=== PATIENT | male | born 1965 | race Caucasian/White ===

== ENCOUNTER → 2017-01-27 | Outpatient (CLI) | payer OTHER ==
[~2017-01-27] MED LIST: MOBI7.5T PO
[2017-01-27 09:34] LABS: HEMATOCRIT 43.5 % (39.0-51.0); MEAN CELL VOLUME 89.7 FL (80.0-100.0); MEAN CORPUSCULAR HEMOGLOBIN 31.3 PG (27.0-34.0); MEAN CORPUSCULAR HGB CONC 34.9 % (32.0-36.0); PLATELET COUNT 213 TH/MM3 (150-450); RED BLOOD COUNT 4.86 MIL/MM3 (4.50-5.90); RED CELL DISTRIBUTION WIDTH 13.3 % (11.6-17.2); REVIEW FLAG FINAL; WHITE BLOOD COUNT 6.4 TH/MM3 (4.0-11.0)
[2017-01-27 09:38] LABS: BLOOD, URINE NEG (NEG); GLUCOSE,URINE NEG (NEG); KETONE, URINE NEG (NEG); NITRITE,URINE NEG (NEG); URINE COLOR LIGHT-YELLOW (YELLW/STRAW)
[2017-01-27 09:41] LABS: APTT (PATIENT) 27.3 SEC (24.3-30.1)
[2017-01-27 09:42] LABS: COMMENT (UR) CULT NOT INDICATED; CULTURE IF INDICATED CULT NOT INDICATED
[2017-01-27 09:57] LABS: BICARBONATE 28.5 MEQ/L (21.0-32.0); POTASSIUM 4.5 MEQ/L (3.5-5.1)
--- NOTE | 2017-01-28 14:23 | EKG ---
Date Performed: 01/27/2017 Time Performed: 08:32:29 PTAGE: 51 years EKG: Sinus rhythm NORMAL ECG NO PREVIOUS TRACING DOCTOR: Zuleika Ingram Interpretating Date/Time 01/28/2017 14:22:00
== END ==
LOC: CPRE 08:13
PROVIDERS: ATTEND Orthopaedic Surgery
DX: Z01.812 Encounter for preprocedural laboratory examination (principal); Z01.810 Encounter for preprocedural cardiovascular examination; M17.12 Unilateral primary osteoarthritis, left knee; M79.609 Pain in unspecified limb; I10 Essential (primary) hypertension
CPT/HCPCS: 36415; 80048; 81001; 85027; 85610; 85730; 93005

== ENCOUNTER 2017-02-10 05:26 | Inpatient (IN) | payer OTHER ==
[~2017-02-10] VITALS: Ht 174 cm; Wt 157.8 kg
[2017-02-10] MEDS ORDERED: TRAM50TA PO (05:53)
[2017-02-10] MEDS ORDERED: SODIUM CHLORID 0.9% 500 ML IV PRN (06:00)
[2017-02-10] MEDS ORDERED: ceFAZolin 3,000 MG/NS 100 ML (if >120 kg) IV SCH ×2 (06:00)
[2017-02-10] MEDS ORDERED: CHLORHEXIDINE GLUCONATE 4% SOLN 120 ML BTL TOPICAL SCH (06:00)
[2017-02-10] MEDS ORDERED: METOPROLOL TARTRATE 25 MG TAB PO PRN (06:00)
[2017-02-10] MEDS ORDERED: LACTATED RINGER'S 1000 ML IV PRN (06:00)
[2017-02-10] MEDS ORDERED: POVIDONE IODINE 5% (ANTISEPSIS KIT) 4 APPLICATIONS EACH NARE PRN (06:00)
[2017-02-10] MEDS ORDERED: CHLORHEXIDINE GLUCONATE 2 % 1 PACK (2 CLOTHS) TOPICAL PRN (06:00)
[2017-02-10] MEDS ORDERED: GENTAMICIN SULFATE 80 MG/2 ML VIAL ONE (06:06)
[2017-02-10] MEDS ORDERED: ceFAZolin 2 GM PREMIX 50 ML ONE (06:06)
[2017-02-10] MEDS ORDERED: ceFAZolin INJ 1,000 MG VIAL ONE (06:35)
[2017-02-10] MEDS ORDERED: BUPIVACAINE LIPOSOME PF 1.3% 20 ML VIAL ONE (06:49)
[2017-02-10] MEDS ORDERED: SODIUM CHLORIDE 0.9% IV SCH ×3 (07:00→10:00)
[2017-02-10] MEDS ORDERED: EXPAREL PERI-ARTICULAR INJECTION (TOTAL VOL. 100 ML) P-ARTICULR SCH ×2 (07:00)
[2017-02-10] MEDS ORDERED: TRANEXAMIC ACID IV SCH ×3 (07:00→10:00)
[2017-02-10] MEDS ORDERED: MORPHINE SULFATE 4 MG/ML INJ IV PUSH PRN (09:45)
[2017-02-10] MEDS ORDERED: ONDANSETRON HCL 4 MG/2 ML VIAL IVP PRN (09:45)
[2017-02-10] MEDS ORDERED: Post-op Orders (for Pharmacy) XX ONE (09:45)
[2017-02-10] MEDS ORDERED: ACETAMINOPHEN/HYDROcodone 325 MG/7.5 MG TAB PO PRN (09:45)
[2017-02-10] MEDS ORDERED: ZOLPIDEM TARTRATE 5 MG TAB PO PRN (09:45)
[2017-02-10] MEDS ORDERED: MAGNESIUM HYDROXIDE SUSP 30 ML CUP PO PRN (09:45)
--- NOTE | 2017-02-10 09:56 | PD.OP ---
Operative Report Date of Surgery: Feb 10, 2017 Preoperative Diagnosis: (1) Primary osteoarthritis of left knee Postoperative Diagnosis: (1) Primary osteoarthritis of left knee Procedure: Left total knee arthroplasty with [place] Triathlon prosthesis (uncemented) Anesthesia: General endotracheal with supplemental abductor canal block regional and local Surgeon: Aden Frias M.D. Reproduction Production Manager(s): VANESSA Bhatia Operation and Findings: Indications and Findings: This 51-year-old man has a two-year history of left knee pain progressively worsening to the point that he now has an ambulation tolerance of 30 minutes. He has difficulty standing from a seated position and ascending and descending stairs with intermittent locking, intermittent giving way and crepitation. He has been treated with anti-inflammatory agents and analgesics and activity modification and exercises intra-articular corticosteroids and ambulatory aids without benefit of improvement. Imaging studies show significant arthritis of the left knee with loss of articular cartilage to bone on bone on the medial compartment with osteophytes in the medial and patellofemoral compartments and eburnation. Findings at surgery were compatible with the radiographic findings with there being loss of articular cartilage to bone on bone medial compartment, medial and patellofemoral osteophytes, loss of articular cartilage in the patellofemoral compartment. The prosthesis used was a [place] Triathlon prosthesis. The femur was a size 5, cruciate retaining, uncemented. The tibial baseplate was a size 5 Tritanium with a 9 mm cruciate retaining X3 polyethylene spacer. The patella was a size 38 mm asymmetric Tritanium backed. The patient was brought to the clean-air operating suite. A general anesthetic was administered as well as a regional anesthetic by abductor canal block. The position was supine with a small bolster under the hip on the operative side. A pneumatic tourniquet was applied to the upper thigh. The lower extremity was then prepped with alcohol, Hibiclens and ChloraPrep and draped in the usual manner with the knee draped free. An appropriate timeout procedure was carried out. An incision was made from about 3 fingerbreadths above the superior medial pole of patella down the tibial tubercle on the medial side. The incision was deepened through the subcutaneous tissue to the right macular structures which were exposed medially and laterally. A medial retinacular incision was then made from the superior middle pole of patella down the tibial tubercle and up into the quadriceps tendon splitting it longitudinally and the medial one third. The patella was reflected. The infrapatellar fat pad was debulked. The anterior cruciate ligament was excised. Medial and lateral meniscectomies were initiated. Fenestrations were made in the distal femur and proximal tibia for intramedullary referencing guides. The distal femoral cutting guide and jig were then assembled for a 5, 8 mm cut. When this was fit position and placed cutting block was stabilized with pins. The jig was removed. The distal femoral cut was then completed with the oscillating saw. The sizing guide was then positioned in place along Whitesides line and the epicondylar axis and stabilized with pins. The femoral size was then determined as noted above. The 4-in-1 cutting block was then positioned in place. Anterior and posterior cuts were made followed by posterior and anterior chamfer cuts taking care to prevent injury to ligamentous structures. Osteophytes were then trimmed from the distal femur. A bone plug was then placed into the fenestration of the distal femur. The proximal tibia was then exposed. The medial and lateral meniscectomies were completed. The proximal tibial cutting guide was then positioned in place and stabilized with a pin for rotation. The depth of cut was then verified with a stylus off the lateral side. The cutting block was stabilized with pins. The jig was removed. The depth of cut was then verified and adjusted appropriately with the use of the spacer block. The proximal tibial cut was then made with the oscillating saw taking care to prevent injury to neurovascular and ligamentous structures. Proximal tibial bone was removed. Local anesthetic was administered with Exparel in the posterior capsule. The tibial baseplate trial was then positioned in place. After verifying the appropriate size, the base plate trial was positioned in place along with its spacer. The femoral component was then impacted into place. The alignment was checked. The tibial baseplate was then pinned in place on the tibia. Attention was directed to the patella. The patella drill guide was positioned in place for the appropriate sized patella. Patellar drilling was then carried out. The trial patella was positioned in place. The lateral facet of the patella that was exposed was excised. The knee was taken through a range of motion which was easily 0 extension to 120. The patella trial was removed. The femoral drill holes were made. The femoral trials were removed. The tibial spacer was removed. A bone plug was placed into the proximal tibia. The tibial punch was impacted through the proximal tibial punch guide. This was all removed followed by placement of the tibial drill guide. The tibial drill holes were then made. The guide was removed. The cut ends of bone were then cleaned with pulse lavage. The tibial baseplate was then impacted into place and seated appropriately. The spacer was inserted. The the femoral component was then impacted into place and seated appropriately. The patella component was then seated with the patellar device and tightened appropriately. The knee was taken through a range of motion which was comparable to the previous range of motion with excellent stability in flexion and extension and appropriate patellofemoral tracking. The remainder of the Exparel was then injected throughout the knee as a local anesthetic. Drains were brought out the superior lateral aspect of the suprapatellar pouch. Wound closure then commenced using 0 Vicryl interrupted [id number] sutures for the capsular and fascial structures, 2-0 Vicryl interrupted simple sutures with buried knots for the subcutaneous tissues and 4- 0 Monocryl, tenuous subcuticular closure for the skin. The wound was then dressed with Steri-Strips followed by Optifoam silver impregnated dressing. Sterile soft roll with a cooling pad and Greyson bandage from the base of the toes to mid thigh were then applied. Patient was then transferred from the operating room to the recovery room in satisfactory condition having tolerated procedure well. Counts are correct. Specimens: None. José Frias MD ([facility]) Feb 10, 2017 09:56
--- NOTE | 2017-02-10 10:05 | HHI.FF ---
Face to Face Verification Diagnosis: (1) Status post total left knee replacement Physical Therapy Gait training Knee: Total knee, Protocol: Left, Gait training, Full weight bearing Right LE Range of Motion: Active ROM (active, active-assisted and passive range of motion. Range of motion goal is 0-120 which was achieved in the operating room.) Left LE Weight Bearing: WB as tolerated Nursing Nursing: Dressing changes Dressing Changes: Daily dressing change (to begin on postop day 7.), Coverderm/ Primapore Additional Instructions Remove Steri-Strips on postop day 14. I have seen patient Reddy Tafoya on 02/10/17. My clinical findings support the need for the requested home health care services because: Ltd mobility - disease progression Limited ability to care for self High risk of falls I certify that my clinical findings support that this patient is homebound because: Post-op weakness Unsteady gait/balance Unsafe to leave home unassisted José Frias MD ([facility]) Feb 10, 2017 10:05
--- NOTE | 2017-02-10 10:09 | HHI.PR ---
Immediate Post Op Note Procedure Date: Feb 10, 2017 Pre Op Diagnosis: (1) Primary osteoarthritis of left knee Post Op Diagnosis: (1) Status post total left knee replacement Surgeon: Aden Frias M.D. Charge Loader(s): VANESSA Bhatia Procedure: Left total knee arthroplasty with Khalif Triathlon prosthesis, uncemented. Findings: Osteoarthritis, left knee. Complications: None Specimen(s) removed: None Estimated blood loss: 750 mL Anesthesia: General, Regional Block (abductor canal), Local (Exparel) Drains: Hemovac (2) IVF Patient to: PACU Patient Condition: Good Implant/Devices: SEE IMPLANT LOG (if applicable) Date/Time of Procedure: SEE SURGICAL CARE RECORD José Frias MD (Charles) Feb 10, 2017 10:09
[2017-02-10] MEDS ORDERED: *morphine SULFATE 8 MG/ML PERIprocedure ONLY ONE ×2 (10:18→10:26)
[2017-02-10] MEDS ORDERED: *HYDROmorphone PF 1 MG VIAL PERIprocedural Use ONLY ONE ×3 (10:33→11:13)
[2017-02-10] MEDS: LACTATED RINGER'S 1000 ML INJ 1,000 ML IV SCH ×2 (10:35→22:14)
--- NOTE | 2017-02-10 10:56 | RADRPT ---
EXAM DATE/TIME: 02/10/2017 10:29 [facility] COMPARISON: No previous studies available for comparison. INDICATIONS : Post op left total knee. MEDICAL HISTORY : None. SURGICAL HISTORY : None. ENCOUNTER: Initial ACUITY: 1 day PAIN SCORE: 10/10 LOCATION: Left Knee FINDINGS: Postsurgical features of left knee arthroplasty. Arthroplasty components are in anatomic alignment. N o significant acute bony fracture. Immediate postsurgical soft tissue features. CONCLUSION: 1. Status post left knee arthroplasty in anatomic alignment without significant acute bony fracture. Luke Grimaldo MD on February 10, 2017 at 10:41 Board Certified Radiologist. This report was verified electronically.
[2017-02-10] MEDS ORDERED: DO NOT ADM ANY ANTICOAGULANT DRUGS PRN ×2 (11:00)
[2017-02-10] MEDS: KETOROLAC TROMETHAMINE 30 MG/ML (IVP) VIAL IVP SCH ×3 (11:20→22:43)
[2017-02-10 12:00] VITALS: BP 109/58; PULSE 68; RESP 20; TEMP 97.3; O2SAT 91
[2017-02-10] MEDS: ACETAMINOPHEN/HYDROcodone 325 MG/7.5 MG TAB PO PRN ×3 (14:22→22:43)
[2017-02-10] MEDS ORDERED: cloNIDine HCL 0.1 MG TAB PO PRN (15:15)
--- NOTE | 2017-02-10 15:15 | PD.CONS ---
HPI Service [facility] Consult Requested By Dr. Aden Frias Reason for Consult Medical management Primary Care Physician Mike Montaño MD Diagnoses: History of Present Illness Patient is a 51-year-old gentleman. With history of obstructive sleep apnea and obesity as well as osteoarthritis who presents for a left total knee arthroplasty performed by Dr. Frias. We've been asked to consult regarding medical management. Patient denies any other medical problems at this time other than obstructive sleep apnea and osteoarthritis We will be available for any other issues that arise Review of Systems Constitutional: DENIES: Diaphoretic episodes, Fatigue, Fever, Weight gain, Weight loss, Chills, Dizziness, Change in appetite, Night Sweats Endocrine: DENIES: Heat/cold intolerance, Polydipsia, Polyuria, Polyphagia Eyes: DENIES: Blurred vision, Diplopia, Eye inflammation, Eye pain, Vision loss , Photosensitivity, Double Vision Ears, nose, mouth, throat: DENIES: Tinnitus, Hearing loss, Vertigo, Nasal discharge, Oral lesions, Throat pain, Hoarseness Respiratory: DENIES: Apneas, Cough, Snoring, Wheezing, Hemoptysis, Sputum production Cardiovascular: DENIES: Chest pain, Palpitations, Syncope, Dyspnea on Exertion , PND Gastrointestinal: DENIES: Abdominal pain, Black stools, Bloody stools, Constipation, Diarrhea Musculoskeletal: DENIES: Joint pain, Muscle aches, Stiffness, Joint Swelling, Back pain Integumentary: DENIES: Abnormal pigmentation, Nail changes, Pruritus Hematologic/lymphatic: DENIES: Bruising, Lymphadenopathy Immunologic/allergic: DENIES: Eczema, Urticaria Neurologic: COMPLAINS OF: Abnormal gait, DENIES: Headache, Localized weakness, Paresthesias, Seizures, Speech Problems Psychiatric: DENIES: Anxiety, Confusion, Mood changes, Depression, Hallucinations, Agitation, Suicidal Ideation Except as stated in HPI: all other systems reviewed are Neg Past Family Social History Allergies: Coded Allergies: No Known Allergies (Unverified , 02/10/17) Past Medical History Objective sleep apnea Osteoarthritis Obesity Chronic back pain Past Surgical History 2 lumbar surgeries Reported Medications Reported Meds & Active Scripts Active Reported Tramadol (Tramadol HCl) 50 Mg Tab 50 Mg PO Q4H PRN Mobic (Meloxicam) 7.5 Mg Tab 7.5 Mg PO BID Active Ordered Medications Current Medications Lactated Ringer's 1,000 ml @ 30 mls/hr Q24H PRN IV SEE LABEL COMMENTS Last administered on 02/10/17 06:03; Start 02/10/17 at 06:00; Stop 02/13/17 at 05 :59 Sodium Chloride 500 ml @ 30 mls/hr [id number] PRN IV SEE LABEL COMMENTS; Start at 06:00; Stop 02/13/17 at 05:59 Metoprolol Tartrate (Lopressor) 25 mg CIRCULAR KNITTER HELPER PRN PO SEE LABEL COMMENTS; Start 02/10/17 at 06:00; Stop 02/13/17 at 05:59 Povidone Iodine (Betadine 5% Antisepsis Kit) 1 applic CIRCULAR KNITTER HELPER PRN EACH NARE SEE LABEL COMMENTS Last administered on 02/10/17 06:03; Start 02/10/17 at 06: 00; Stop 02/13/17 at 05:59 Chlorhexidine Gluconate (Chlorhexidine 2% Cloth) 3 pack CIRCULAR KNITTER HELPER PRN TOPICAL SEE LABEL COMMENTS Last administered on 02/09/17 05:40; Start 02/10/17 at 06: 00; Stop 02/13/17 at 05:59 Chlorhexidine Gluconate (Hibiclens 4% Top Soln) 1 applic ONCE TOPICAL Last administered on 02/10/17 06:03; Start 02/10/17 at 06:00; Stop 02/13/17 at 05 :59 Cefazolin Sodium 3000 mg/Sodium Chloride 130 ml @ 200 mls/hr CIRCULAR KNITTER HELPER IV ; Start 02/10/17 at 06:00; Stop 02/11/17 at 05:59 Tranexamic Acid 1578 mg/Sodium Chloride 115.78 ml @ 200 mls/ hr ONCE IV Last administered on 02/10/17 07:01; Start 02/10/17 at 07:00; Stop 02/10/17 at 13 :00; Status DC Tranexamic Acid 1578 mg/Sodium Chloride 115.78 ml @ 200 mls/ hr ONCE IV ; Start 02/10/17 at 10:00; Stop 02/10/17 at 16:00 Bupivacaine Liposome 20 ml/ Sodium Chloride 100 ml @ 200 mls/hr ONCE P- ARTICULR ; Start 02/10/17 at 07:00; Stop 02/10/17 at 13:00; Status DC Cefazolin Sodium/ Dextrose 50 ml @ As Directed STK-MED ONCE .ROUTE Last administered on 02/10/17 07:16; Start 02/10/17 at 06:06; Stop 02/10/17 at 06 :07; Status DC Gentamicin Sulfate (Gentamicin Inj) 240 mg STK-MED ONCE .ROUTE Last administered on 02/10/17 07:30; Start 02/10/17 at 06:06; Stop 02/10/17 at 06 :07; Status DC Cefazolin Sodium (Ancef Inj) 1,000 mg STK-MED ONCE .ROUTE Last administered on 02/10/17 07:16; Start 02/10/17 at 06:35; Stop 02/10/17 at 06:36; Status DC Bupivacaine Liposome (Exparel Pf 1.3% Inj) 20 ml STK-MED ONCE .ROUTE ; Start at 06:49; Stop 02/10/17 at 06:50; Status DC Fentanyl Citrate (fentaNYL INJ) 500 mcg STK-MED ONCE .ROUTE ; Start 02/10/17 at 08:15; Stop 02/10/17 at 08:16; Status DC Lactated Ringer's 1,000 ml @ 80 mls/hr [id number] IV Last administered on 10:35; Start 02/10/17 at 09:44 Cefazolin Sodium 1000 mg/Sodium Chloride 100 ml @ 200 mls/hr Q6H IV ; Start at 16:00; Stop 02/11/17 at 04:29 Miscellaneous Information (Post-op Orders (for Pharmacy)) STAT ONCE XX ; Start 02/10/17 at 09:45; Stop 02/10/17 at 11:02; Status DC Morphine Sulfate (Morphine Inj) 4 mg Q3H PRN IV PUSH BREAKTHROUGH PAIN; Start 02/10/17 at 09:45 Acetaminophen/ Hydrocodone Bitart ([place] 7.5-325 Mg) 1 tab Q4H PRN PO PAIN LESS THAN 5 ON SCALE; Start 02/10/17 at 09:45 Acetaminophen/ Hydrocodone Bitart ([place] 7.5-325 Mg) 2 tab Q4H PRN PO PAIN SCALE 5 TO 10 Last administered on 02/10/17 14:22; Start 02/10/17 at 09:45 Ketorolac Tromethamine (Toradol Inj) 15 mg Q6H IVP Last administered on 11:20; Start 02/10/17 at 11:00; Stop 02/12/17 at 05:01 Tranexamic Acid 1580 mg/Sodium Chloride 115.8 ml @ 200 mls/hr UNSCH IV Last administered on 02/10/17 10:22; Start 02/10/17 at 09:45; Stop 02/10/17 at 11 :02; Status DC Ondansetron HCl (Zofran Inj) 4 mg Q6H PRN IVP NAUSEA OR VOMITING; Start at 09:45 Docusate Sodium (Colace) 100 mg BID PO ; Start 02/11/17 at 21:00 Zolpidem Tartrate (Ambien) 5 mg HS PRN PO SLEEP; Start 02/10/17 at 09:45 Magnesium Hydroxide (Milk Of Magnesia Liq) 30 ml DAILY PRN PO CONSTIPATION; Start 02/10/17 at 09:45 Aspirin (Ecotrin Ec) 81 mg BID PO ; Start 02/11/17 at 09:00 Morphine Sulfate (*morphine INJ PERIprocedure ONLY) 8 mg STK-MED ONCE .ROUTE Last administered on 02/10/17 10:20; Start 02/10/17 at 10:18; Stop 02/10/17 at 10:19; Status DC Morphine Sulfate (*morphine INJ PERIprocedure ONLY) 8 mg STK-MED ONCE .ROUTE Last administered on 02/10/17 10:28; Start 02/10/17 at 10:26; Stop 02/10/17 at 10:27; Status DC Hydromorphone HCl (*DILAUDID PF INJ PERIprocedural ONLY) 1 mg STK-MED ONCE .ROUTE Last administered on 02/10/17 10:34; Start 02/10/17 at 10:33; Stop 02/10/17 at 10:34; Status DC Miscellaneous Information ALL NURSING DEPARTME... UNSCH PRN .XX SEE LABEL COMMENTS; Start 02/10/17 at 11:00; Stop 02/10/17 at 11:00; Status DC Miscellaneous Information ALL NURSING DEPARTME... UNSCH PRN .XX SEE LABEL COMMENTS; Start 02/10/17 at 11:00; Stop 02/11/17 at 10:59 Hydromorphone HCl (*DILAUDID PF INJ PERIprocedural ONLY) 1 mg STK-MED ONCE .ROUTE Last administered on 02/10/17t 10:57; Start 02/10/17 at 10:56; Stop 02/10/17 at 10:57; Status DC Hydromorphone HCl (*DILAUDID PF INJ PERIprocedural ONLY) 1 mg STK-MED ONCE .ROUTE Last administered on 02/10/17 11:15; Start 02/10/17 at 11:13; Stop 02/10/17 at 11:14; Status DC Family History Mother from lung cancer Social History Former smoker quit Occasional alcohol denies any illicits Physical Exam Vital Signs Vital Signs Date Time Temp Pulse Resp B/P (MAP) Pulse Ox O2 Delivery O2 Flow Rate FiO2 02/10/17 12:56 16 02/10/17 12:00 97.3 68 20 109/58 (75) 91 02/10/17 11:15 98.5 68 12 150/79 (102) 96 Nasal Cannula 3 02/10/17 11:00 69 10 136/67 (90) 93 Nasal Cannula 3 02/10/17 10:45 72 12 140/64 (89) 96 Nasal Cannula 3 02/10/17 10:30 74 15 142/64 (90) 92 Nasal Cannula 3 02/10/17 10:14 98.4 81 14 156/89 (111) 97 Simple Mask 6 02/10/17 06:09 98.2 69 20 121/57 (78) 100 Physical Exam GENERAL: This is a well-nourished, well-developed patient, in no apparent distress. SKIN: No rashes, ecchymoses or lesions. Cool and dry. HEAD: Atraumatic. Normocephalic. No temporal or scalp tenderness. EYES: Pupils equal round and reactive. Extraocular motions intact. No scleral icterus. No injection or drainage. ENT: Nose without bleeding, purulent drainage or septal hematoma. Throat without erythema, tonsillar hypertrophy or exudate. Uvula midline. Airway patent. NECK: Trachea midline. No JVD or lymphadenopathy. Supple, nontender, no meningeal signs. CARDIOVASCULAR: Regular rate and rhythm without murmurs, gallops, or rubs. S1 and S2 no S3 or S4 RESPIRATORY: Clear to auscultation. Breath sounds equal bilaterally. No wheezes , rales, or rhonchi. GASTROINTESTINAL: Abdomen soft, non-tender, nondistended. No hepato-splenomegaly , or palpable masses. No guarding. Morbidly obese MUSCULOSKELETAL: Extremities without clubbing, cyanosis, or edema. No joint tenderness, effusion, or edema noted. No calf tenderness. Negative Homans sign bilaterally. Left knee is dressed left leg is dressed NEUROLOGICAL: Awake and alert. Cranial nerves II through XII intact. Motor and sensory grossly within normal limits. Five out of 5 muscle strength in all muscle groups. Normal speech. Insight and judgment good Mood and behavior appropriate Imaging Last Impressions Knee X-Ray 02/10/17 0944 Signed Impressions: Service Date/Time: Friday, February 10, 2017 10:29 - CONCLUSION: 1. Status post left knee arthroplasty in anatomic alignment without significant acute bony fracture. Luke Grimaldo MD Assessment and Plan Assessment and Plan Status post left total knee arthroplasty by orthopedics postop day #0 Morbid obesity weight loss recommended Obstructive sleep apnea continue on CPAP/BiPAP A.m. labs Discussed with patient RN and Code Status Full code Discussed Condition With Patient, RN and Chang Worrell DO Feb 10, 2017 15:15
[2017-02-10 16:00] VITALS: BP 132/68; PULSE 73; RESP 21; TEMP 95.8; O2SAT 96
[2017-02-10 21:06] VITALS: O2SAT 96
[2017-02-10 21:14] VITALS: BP 101/58; PULSE 86; RESP 17; TEMP 97; O2SAT 96
[2017-02-11 00:02] VITALS: BP 118/60; PULSE 76; RESP 17; TEMP 96.9; O2SAT 96
[2017-02-11] MEDS: KETOROLAC TROMETHAMINE 30 MG/ML (IVP) VIAL IVP SCH ×2 (03:43→10:54)
[2017-02-11] MEDS: ACETAMINOPHEN/HYDROcodone 325 MG/7.5 MG TAB PO PRN ×3 (03:44→12:46)
[2017-02-11 03:59] VITALS: BP 150/73; PULSE 64; RESP 16; TEMP 97; O2SAT 98
--- NOTE | 2017-02-11 06:22 | PD.ORT.PN ---
Subjective Post Op Day #: 1 Subjective Remarks He is doing well. He has minimal complaints related to his knee at this time. He did well with physical therapy. Range of Motion -13-95 Distance Walked 35 feet with PT Objective Vitals Vital Signs Date Time Temp Pulse Resp B/P (MAP) Pulse Ox O2 Delivery O2 Flow Rate FiO2 02/11/17 03:59 97.0 64 16 150/73 (98) 98 02/11/17 00:02 96.9 76 17 118/60 (79) 96 02/10/17 21:14 97.0 86 17 101/58 (72) 96 02/10/17 21:06 96 21 02/10/17 19:09 Room Air 02/10/17 17:56 16 02/10/17 16:00 95.8 73 21 132/68 (89) 96 02/10/17 15:22 16 02/10/17 12:00 97.3 68 20 109/58 (75) 91 02/10/17 11:15 98.5 68 12 150/79 (102) 96 Nasal Cannula 3 02/10/17 11:00 69 10 136/67 (90) 93 Nasal Cannula 3 02/10/17 10:45 72 12 140/64 (89) 96 Nasal Cannula 3 02/10/17 10:30 74 15 142/64 (90) 92 Nasal Cannula 3 02/10/17 10:14 98.4 81 14 156/89 (111) 97 Simple Mask 6 I/O 02/10/17 02/10/17 02/10/17 02/11/17 02/11/17 02/11/17 07:00 15:00 23:00 07:00 15:00 23:00 Intake Total 2020 ml 340 ml 643 ml Output Total 3800 ml 350 ml Balance -1780 ml -10 ml 643 ml Intake Oral 120 ml 240 ml IV Total 1900 ml 100 ml 643 ml Output Urine Total 350 ml Drainage Total 50 ml Estimated Blood Loss 750 ml Other 3000 ml # Bowel Movements 0 Imaging Last 24 hours Impressions Knee X-Ray 02/10/17 0944 Signed Impressions: Service Date/Time: Friday, February 10, 2017 10:29 - CONCLUSION: 1. Status post left knee arthroplasty in anatomic alignment without significant acute bony fracture. Luke Grimaldo MD Objective Remarks He is resting comfortably, supine in bed, in the CPM. The neurovascular status is intact. The dressing is dry and intact. Assessment & Plan Ortho Post Op Day #: 1 Problem List: Assessment and Plan Condition: Good. Orthopedically stable. DVT prophylaxis: TEDs, aspirin, sequentials. Discharge plans: Home with home health care. An appointment was scheduled through the office. Prescriptions: [place] 7.5/325 José Frias MD ([place]) Feb 11, 2017 06:22
[2017-02-11] MEDS ORDERED: HYDR-3580 PO (06:27)
[2017-02-11 08:00] VITALS: BP 121/54; PULSE 75; RESP 20; TEMP 96.4; O2SAT 96
[2017-02-11] MEDS ORDERED: ASPIRIN EC 81 MG TABEC PO SCH (09:00)
[2017-02-11 09:24] VITALS: O2SAT 99
[2017-02-11 09:45] LABS: AUTOMATED NEUTROPHIL # 6.6 TH/MM3 (1.8-7.7); BASOPHIL % 0.5 % (0.0-2.0); EOSINOPHIL % 0.5 % (0.0-4.0); HEMATOCRIT 35.1 % (39.0-51.0); HEMO FLAGS DIFF FINAL; LYMPH % 18.3 % (9.0-44.0); LYMPHOCYTE # 1.6 TH/MM3 (1.0-4.8); MEAN CORPUSCULAR HEMOGLOBIN 31.8 PG (27.0-34.0); MEAN CORPUSCULAR HGB CONC 35.3 % (32.0-36.0); MONO % 6.8 % (0.0-8.0); NEUT % 73.9 % (16.0-70.0); PLATELET COUNT 219 TH/MM3 (150-450); RED CELL DISTRIBUTION WIDTH 13.2 % (11.6-17.2); WHITE BLOOD COUNT 8.9 TH/MM3 (4.0-11.0)
[2017-02-11 10:14] LABS: ALT (GPT) 29 U/L (12-78); ANION GAP 7 MEQ/L (5-15); AST (GOT) 17 U/L (15-37); BICARBONATE 28.3 MEQ/L (21.0-32.0); BLOOD UREA NITROGEN 14 MG/DL (7-18); CHLORIDE 101 MEQ/L (98-107); GLOMERULAR FILTRATION RATE 76 ML/MIN (>89); MAGNESIUM 1.9 MG/DL (1.5-2.5); POTASSIUM 3.7 MEQ/L (3.5-5.1); SODIUM (NA) 136 MEQ/L (136-145)
[2017-02-11 10:23] LABS: ALKALINE PHOSPHATASE 73 U/L (45-117); FREE T4 1.52 NG/DL (0.76-1.46); TOTAL BILIRUBIN ADULT 0.5 MG/DL (0.2-1.0)
[2017-02-11] MEDS: LACTATED RINGER'S 1000 ML INJ 1,000 ML IV SCH (10:44)
--- NOTE | 2017-02-11 11:51 | HHI.PR ---
Subjective Remarks Patient is a 51-year-old gentleman. With history of obstructive sleep apnea and obesity as well as osteoarthritis who presents for a left total knee arthroplasty performed by Dr. Frias. We've been asked to consult regarding medical management. Patient denies any other medical problems at this time other than obstructive sleep apnea and osteoarthritis We will be available for any other issues that arise 02-11 states he is going home today Paper work has been done by orthopedics Objective Vitals Vital Signs Date Time Temp Pulse Resp B/P (MAP) Pulse Ox O2 Delivery O2 Flow Rate FiO2 02/11/17 09:24 99 02/11/17 08:00 96.4 75 20 121/54 (76) 96 02/11/17 03:59 97.0 64 16 150/73 (98) 98 02/11/17 00:02 96.9 76 17 118/60 (79) 96 02/10/17 21:14 97.0 86 17 101/58 (72) 96 02/10/17 21:06 96 21 02/10/17 19:09 Room Air 02/10/17 17:56 16 02/10/17 16:00 95.8 73 21 132/68 (89) 96 02/10/17 15:22 16 02/10/17 12:00 97.3 68 20 109/58 (75) 91 I/O 02/10/17 02/10/17 02/10/17 02/11/17 02/11/17 02/11/17 07:00 15:00 23:00 07:00 15:00 23:00 Intake Total 2020 ml 340 ml 1123 ml Output Total 3800 ml 350 ml 925 ml Balance -1780 ml -10 ml 198 ml Intake Oral 120 ml 240 ml 480 ml IV Total 1900 ml 100 ml 643 ml Output Urine Total 350 ml 725 ml Drainage Total 50 ml 200 ml Estimated Blood Loss 750 ml Other 3000 ml # Bowel Movements 0 0 Result Diagram: 02/11/1790202/11/17902 Other Results Laboratory Tests Test 02/11/17 09:03 White Blood Count 8.9 TH/MM3 Red Blood Count 3.90 MIL/MM3 Hemoglobin 12.4 GM/DL Hematocrit 35.1 % Mean Corpuscular Volume 90.0 FL Mean Corpuscular Hemoglobin 31.8 PG Mean Corpuscular Hemoglobin Concent 35.3 % Red Cell Distribution Width 13.2 % Platelet Count 219 TH/MM3 Mean Platelet Volume 9.5 FL Neutrophils (%) (Auto) 73.9 % Lymphocytes (%) (Auto) 18.3 % Monocytes (%) (Auto) 6.8 % Eosinophils (%) (Auto) 0.5 % Basophils (%) (Auto) 0.5 % Neutrophils # (Auto) 6.6 TH/MM3 Lymphocytes # (Auto) 1.6 TH/MM3 Monocytes # (Auto) 0.6 TH/MM3 Eosinophils # (Auto) 0.0 TH/MM3 Basophils # (Auto) 0.0 TH/MM3 CBC Comment DIFF FINAL Differential Comment Blood Urea Nitrogen 14 MG/DL Creatinine 1.03 MG/DL Random Glucose 146 MG/DL Total Protein 6.6 GM/DL Albumin 3.0 GM/DL Calcium Level 8.2 MG/DL Phosphorus Level 4.1 MG/DL Magnesium Level 1.9 MG/DL Alkaline Phosphatase 73 U/L Aspartate Amino Transf (AST/SGOT) 17 U/L Alanine Aminotransferase (ALT/SGPT) 29 U/L Total Bilirubin 0.5 MG/DL Sodium Level 136 MEQ/L Potassium Level 3.7 MEQ/L Chloride Level 101 MEQ/L Carbon Dioxide Level 28.3 MEQ/L Anion Gap 7 MEQ/L Estimat Glomerular Filtration Rate 76 ML/MIN Free Thyroxine 1.52 NG/DL Thyroid Stimulating Hormone 3rd Gen 1.370 uIU/ML Imaging Last Impressions Knee X-Ray 02/10/17 0944 Signed Impressions: Service Date/Time: Friday, February 10, 2017 10:29 - CONCLUSION: 1. Status post left knee arthroplasty in anatomic alignment without significant acute bony fracture. Luke Grimaldo MD Objective Remarks GENERAL: Awake alert oriented talkative and cooperative SKIN: Warm and dry. Left knee is dressed HEAD: Atraumatic. Normocephalic. EYES: Pupils equal and round. No scleral icterus. No injection or drainage. Extraocular muscles intact ENT: No nasal bleeding or discharge. Mucous membranes pink and moist. Tongue is midline NECK: Trachea midline. No JVD. Supple CARDIOVASCULAR: Regular rate and rhythm. S1 and S2 no S3 or S4 no heave or thrill or rub or gallop RESPIRATORY: No accessory muscle use. Clear to auscultation. Breath sounds equal bilaterally. Decreased breath sounds GASTROINTESTINAL: Abdomen soft, non-tender, nondistended. Hepatic and splenic margins not palpable. Morbidly obese MUSCULOSKELETAL: Extremities without clubbing, cyanosis, or edema. No obvious deformities. Left knee is dressed and wrapped NEUROLOGICAL: Awake and alert. No obvious cranial nerve deficits. Motor grossly within normal limits. 4 out of 5 muscle strength in the arms and legs. Normal speech. PSYCHIATRIC: Appropriate mood and affect; insight and judgment normal. Procedures Operative Report Date of Surgery: Feb 10, 2017 Preoperative Diagnosis: (1) Primary osteoarthritis of left knee Postoperative Diagnosis: (1) Primary osteoarthritis of left knee Procedure: Left total knee arthroplasty with [place] Triathlon prosthesis (uncemented) Anesthesia: General endotracheal with supplemental abductor canal block regional and local Surgeon: Aden Frias M.D. [place] Reporter(s): VANESSA Bhatia Operation and Findings: Indications and Findings: This 51-year-old man has a two-year history of left knee pain progressively worsening to the point that he now has an ambulation tolerance of 30 minutes. He has difficulty standing from a seated position and ascending and descending stairs with intermittent locking, intermittent giving way and crepitation. He has been treated with anti-inflammatory agents and analgesics and activity modification and exercises intra-articular corticosteroids and ambulatory aids without benefit of improvement. Imaging studies show significant arthritis of the left knee with loss of articular cartilage to bone on bone on the medial compartment with osteophytes in the medial and patellofemoral compartments and eburnation. Findings at surgery were compatible with the radiographic findings with there being loss of articular cartilage to bone on bone medial compartment, medial and patellofemoral osteophytes, loss of articular cartilage in the patellofemoral compartment. The prosthesis used was a [place] Triathlon prosthesis. The femur was a size 5, cruciate retaining, uncemented. The tibial baseplate was a size 5 Tritanium with a 9 mm cruciate retaining X3 polyethylene spacer. The patella was a size 38 mm asymmetric Tritanium backed. The patient was brought to the clean-air operating suite. A general anesthetic was administered as well as a regional anesthetic by abductor canal block. The position was supine with a small bolster under the hip on the operative side. A pneumatic tourniquet was applied to the upper thigh. The lower extremity was then prepped with alcohol, Hibiclens and ChloraPrep and draped in the usual manner with the knee draped free. An appropriate timeout procedure was carried out. An incision was made from about 3 fingerbreadths above the superior medial pole of patella down the tibial tubercle on the medial side. The incision was deepened through the subcutaneous tissue to the right macular structures which were exposed medially and laterally. A medial retinacular incision was then made from the superior middle pole of patella down the tibial tubercle and up into the quadriceps tendon splitting it longitudinally and the medial one third. The patella was reflected. The infrapatellar fat pad was debulked. The anterior cruciate ligament was excised. Medial and lateral meniscectomies were initiated. Fenestrations were made in the distal femur and proximal tibia for intramedullary referencing guides. The distal femoral cutting guide and jig were then assembled for a 5, 8 mm cut. When this was fit position and placed cutting block was stabilized with pins. The jig was removed. The distal femoral cut was then completed with the oscillating saw. The sizing guide was then positioned in place along [place] line and the epicondylar axis and stabilized with pins. The femoral size was then determined as noted above. The 4-in-1 cutting block was then positioned in place. Anterior and posterior cuts were made followed by posterior and anterior chamfer cuts taking care to prevent injury to ligamentous structures. Osteophytes were then trimmed from the distal femur. A bone plug was then placed into the fenestration of the distal femur. The proximal tibia was then exposed. The medial and lateral meniscectomies were completed. The proximal tibial cutting guide was then positioned in place and stabilized with a pin for rotation. The depth of cut was then verified with a stylus off the lateral side. The cutting block was stabilized with pins. The jig was removed. The depth of cut was then verified and adjusted appropriately with the use of the spacer block. The proximal tibial cut was then made with the oscillating saw taking care to prevent injury to neurovascular and ligamentous structures. Proximal tibial bone was removed. Local anesthetic was administered with Exparel in the posterior capsule. The tibial baseplate trial was then positioned in place. After verifying the appropriate size, the base plate trial was positioned in place along with its spacer. The femoral component was then impacted into place. The alignment was checked. The tibial baseplate was then pinned in place on the tibia. Attention was directed to the patella. The patella drill guide was positioned in place for the appropriate sized patella. Patellar drilling was then carried out. The trial patella was positioned in place. The lateral facet of the patella that was exposed was excised. The knee was taken through a range of motion which was easily 0 extension to 120. The patella trial was removed. The femoral drill holes were made. The femoral trials were removed. The tibial spacer was removed. A bone plug was placed into the proximal tibia. The tibial punch was impacted through the proximal tibial punch guide. This was all removed followed by placement of the tibial drill guide. The tibial drill holes were then made. The guide was removed. The cut ends of bone were then cleaned with pulse lavage. The tibial baseplate was then impacted into place and seated appropriately. The spacer was inserted. The the femoral component was then impacted into place and seated appropriately. The patella component was then seated with the patellar device and tightened appropriately. The knee was taken through a range of motion which was comparable to the previous range of motion with excellent stability in flexion and extension and appropriate patellofemoral tracking. The remainder of the Exparel was then injected throughout the knee as a local anesthetic. Drains were brought out the superior lateral aspect of the suprapatellar pouch. Wound closure then commenced using 0 Vicryl interrupted [id number] sutures for the capsular and fascial structures, 2-0 Vicryl interrupted simple sutures with buried knots for the subcutaneous tissues and 4- 0 Monocryl, tenuous subcuticular closure for the skin. The wound was then dressed with Steri-Strips followed by Optifoam silver impregnated dressing. Sterile soft roll with a cooling pad and Greyson bandage from the base of the toes to mid thigh were then applied. Patient was then transferred from the operating room to the recovery room in satisfactory condition having tolerated procedure well. Counts are correct. Specimens: None. José Frias MD ([facility]) Medications and IVs Current Medications Lactated Ringer's 1,000 ml @ 30 mls/hr Q24H PRN IV SEE LABEL COMMENTS Last administered on 02/10/17t 06:03; Start 02/10/17 at 06:00; Stop 02/13/17 at 05 :59 Sodium Chloride 500 ml @ 30 mls/hr [id number] PRN IV SEE LABEL COMMENTS; Start at 06:00; Stop 02/13/17 at 05:59 Metoprolol Tartrate (Lopressor) 25 mg VICTIM WITNESS ADMINISTRATOR PRN PO SEE LABEL COMMENTS; Start 02/10/17 at 06:00; Stop 02/13/17 at 05:59 Povidone Iodine (Betadine 5% Antisepsis Kit) 1 applic VICTIM WITNESS ADMINISTRATOR PRN EACH NARE SEE LABEL COMMENTS Last administered on 02/10/17 06:03; Start 02/10/17 at 06: 00; Stop 02/13/17 at 05:59 Chlorhexidine Gluconate (Chlorhexidine 2% Cloth) 3 pack VICTIM WITNESS ADMINISTRATOR PRN TOPICAL SEE LABEL COMMENTS Last administered on 02/09/17 05:40; Start 02/10/17 at 06: 00; Stop 02/13/17 at 05:59 Chlorhexidine Gluconate (Hibiclens 4% Top Soln) 1 applic ONCE TOPICAL Last administered on 02/10/17 06:03; Start 02/10/17 at 06:00; Stop 02/13/17 at 05 :59 Cefazolin Sodium 3000 mg/Sodium Chloride 130 ml @ 200 mls/hr VICTIM WITNESS ADMINISTRATOR IV ; Start 02/10/17 at 06:00; Stop 02/11/17 at 05:59; Status DC Tranexamic Acid 1578 mg/Sodium Chloride 115.78 ml @ 200 mls/ hr ONCE IV Last administered on 02/10/17 07:01; Start 02/10/17 at 07:00; Stop 02/10/17 at 13 :00; Status DC Tranexamic Acid 1578 mg/Sodium Chloride 115.78 ml @ 200 mls/ hr ONCE IV ; Start 02/10/17 at 10:00; Stop 02/10/17 at 16:00; Status DC Bupivacaine Liposome 20 ml/ Sodium Chloride 100 ml @ 200 mls/hr ONCE P- ARTICULR ; Start 02/10/17 at 07:00; Stop 02/10/17 at 13:00; Status DC Cefazolin Sodium/ Dextrose 50 ml @ As Directed STK-MED ONCE .ROUTE Last administered on 02/10/17 07:16; Start 02/10/17 at 06:06; Stop 02/10/17 at 06 :07; Status DC Gentamicin Sulfate (Gentamicin Inj) 240 mg STK-MED ONCE .ROUTE Last administered on 02/10/17 07:30; Start 02/10/17 at 06:06; Stop 02/10/17 at 06 :07; Status DC Cefazolin Sodium (Ancef Inj) 1,000 mg STK-MED ONCE .ROUTE Last administered on 02/10/17 07:16; Start 02/10/17 at 06:35; Stop 02/10/17 at 06:36; Status DC Bupivacaine Liposome (Exparel Pf 1.3% Inj) 20 ml STK-MED ONCE .ROUTE ; Start at 06:49; Stop 02/10/17 at 06:50; Status DC Fentanyl Citrate (fentaNYL INJ) 500 mcg STK-MED ONCE .ROUTE ; Start 02/10/17 at 08:15; Stop 02/10/17 at 08:16; Status DC Lactated Ringer's 1,000 ml @ 80 mls/hr [id number] IV Last administered on 10:35; Start 02/10/17 at 09:44 Cefazolin Sodium 1000 mg/Sodium Chloride 100 ml @ 200 mls/hr Q6H IV Last administered on 02/11/17 03:44; Start 02/10/17 at 16:00; Stop 02/11/17 at 04 :29; Status DC Miscellaneous Information (Post-op Orders (for Pharmacy)) STAT ONCE XX ; Start 02/10/17 at 09:45; Stop 02/10/17 at 11:02; Status DC Morphine Sulfate (Morphine Inj) 4 mg Q3H PRN IV PUSH BREAKTHROUGH PAIN; Start 02/10/17 at 09:45 Acetaminophen/ Hydrocodone Bitart ([place] 7.5-325 Mg) 1 tab Q4H PRN PO PAIN LESS THAN 5 ON SCALE; Start 02/10/17 at 09:45 Acetaminophen/ Hydrocodone Bitart ([place] 7.5-325 Mg) 2 tab Q4H PRN PO PAIN SCALE 5 TO 10 Last administered on 02/11/17 08:08; Start 02/10/17 at 09:45 Ketorolac Tromethamine (Toradol Inj) 15 mg Q6H IVP Last administered on 10:54; Start 02/10/17 at 11:00; Stop 02/12/17 at 05:01 Tranexamic Acid 1580 mg/Sodium Chloride 115.8 ml @ 200 mls/hr UNSCH IV Last administered on 02/10/17 10:22; Start 02/10/17 at 09:45; Stop 02/10/17 at 11 :02; Status DC Ondansetron HCl (Zofran Inj) 4 mg Q6H PRN IVP NAUSEA OR VOMITING; Start at 09:45 Docusate Sodium (Colace) 100 mg BID PO ; Start 02/11/17 at 21:00 Zolpidem Tartrate (Ambien) 5 mg HS PRN PO SLEEP; Start 02/10/17 at 09:45 Magnesium Hydroxide (Milk Of Magnesia Liq) 30 ml DAILY PRN PO CONSTIPATION; Start 02/10/17 at 09:45 Aspirin (Ecotrin Ec) 81 mg BID PO Last administered on 02/11/17 08:12; Start 02/11/17 at 09:00 Morphine Sulfate (*morphine INJ PERIprocedure ONLY) 8 mg STK-MED ONCE .ROUTE Last administered on 02/10/17 10:20; Start 02/10/17 at 10:18; Stop 02/10/17 at 10:19; Status DC Morphine Sulfate (*morphine INJ PERIprocedure ONLY) 8 mg STK-MED ONCE .ROUTE Last administered on 02/10/17 10:28; Start 02/10/17 at 10:26; Stop 02/10/17 at 10:27; Status DC Hydromorphone HCl (*DILAUDID PF INJ PERIprocedural ONLY) 1 mg STK-MED ONCE .ROUTE Last administered on 02/10/17 10:34; Start 02/10/17 at 10:33; Stop 02/10/17 at 10:34; Status DC Miscellaneous Information ALL NURSING DEPARTME... UNSCH PRN .XX SEE LABEL COMMENTS; Start 02/10/17 at 11:00; Stop 02/10/17 at 11:00; Status DC Miscellaneous Information ALL NURSING DEPARTME... UNSCH PRN .XX SEE LABEL COMMENTS; Start 02/10/17 at 11:00; Stop 02/11/17 at 10:59; Status DC Hydromorphone HCl (*DILAUDID PF INJ PERIprocedural ONLY) 1 mg STK-MED ONCE .ROUTE Last administered on 02/10/17t 10:57; Start 02/10/17 at 10:56; Stop 02/10/17 at 10:57; Status DC Hydromorphone HCl (*DILAUDID PF INJ PERIprocedural ONLY) 1 mg STK-MED ONCE .ROUTE Last administered on 02/10/17t 11:15; Start 02/10/17 at 11:13; Stop 02/10/17 at 11:14; Status DC Clonidine (Catapres) 0.1 mg Q4H PRN PO SBP>160, DBP>90; Start 02/10/17 at 15: 15 A/P Assessment and Plan Status post left total knee arthroplasty by orthopedics postop day #1 Morbid obesity weight loss recommended Obstructive sleep apnea continue on CPAP/BiPAP Borderline thyroid disease Elevated glucose hemoglobin A1c is still pending Needs to follow up with his primary care physician Cleared for discharge from medical perspective per hospitalist team Chang Worrell DO Feb 11, 2017 11:51
[2017-02-11 12:00] VITALS: BP 153/75; PULSE 68; RESP 20; TEMP 97.1; O2SAT 100
[2017-02-11 17:05] LABS: HEMOGLOBIN A1a 1.1 %; HEMOGLOBIN A1b 0.8 %; HEMOGLOBIN F 1.4 %; HEMOGLOBIN LA1C 2.3 %; HEMOGLOBIN P3 3.7 %
[2017-02-11] MEDS ORDERED: DOCUSATE SODIUM 100 MG CAP PO SCH (21:00)
--- NOTE | 2017-02-12 07:44 | HHI.DS ---
Discharge Summary Admission Date Feb 10, 2017 at 05:26 Discharge Date: Feb 11, 2017 Admitting Diagnosis Primary osteoarthritis, left knee. Diagnosis: (1) Primary osteoarthritis of left knee Diagnosis: Principal ICD Codes: M17.12 - Unilateral primary osteoarthritis, left knee Procedures Left total knee arthroplasty was [place] Triathlon prosthesis (uncemented) on Brief History This is a 51 year old male patient has had long-standing left knee pain nonresponsive to conservative measures as detailed in the history and physical examination. Physical findings show significant medial tenderness and laxity with tricompartmental amputation and tenderness. X-rays showed loss of articular cartilage to bone on bone medial compartment with tricompartmental osteophytes. There is medial eburnation as well. CBC/BMP: 02/11/17 0903 02/11/17 0903 Significant Findings Laboratory Tests Test 02/11/17 09:03 Red Blood Count 3.90 MIL/MM3 (4.50-5.90) Hemoglobin 12.4 GM/DL (13.0-17.0) Hematocrit 35.1 % (39.0-51.0) Neutrophils (%) (Auto) 73.9 % (16.0-70.0) Random Glucose 146 MG/DL (74-106) Albumin 3.0 GM/DL (3.4-5.0) Calcium Level 8.2 MG/DL (8.5-10.1) Estimat Glomerular Filtration Rate 76 ML/MIN (>89) Free Thyroxine 1.52 NG/DL (0.76-1.46) Imaging Last 72 hours Impressions Knee X-Ray 02/10/17 0944 Signed Impressions: Service Date/Time: Friday, February 10, 2017 10:29 - CONCLUSION: 1. Status post left knee arthroplasty in anatomic alignment without significant acute bony fracture. Luke Grimaldo MD PE at Discharge He is resting comfortably, supine in bed, in the CPM. The neurovascular status is intact. The dressing is dry and intact. Hospital Course The patient was admitted on 02/10/2017. He had the above-noted total knee arthroplasty carried out and tolerated it well. In post anesthesia was started with a continuous passive motion device and also had DVT prophylaxis initiated with KAIA stockings and sequentials. Aspirin was continued according to protocol following day. He received prophylactic antibiotics in the form of Ancef according to the protocol. Physical therapy was initiated on the day of surgery. He progressively increased his ambulation tolerance to 60 feet with therapy. In addition, his range of motion went from -9-97. He had physical therapy continued during his first postoperative day including the therapy class. After this, he was discharged home with home health care. Pt Condition on Discharge: Good Discharge Disposition: Disch w/ Home Health Serv Discharge Instructions Diet Instructions: As Tolerated, No Restrictions Activities You Can Perform: Full Weight Bearing, Shower Only-No Bath Activities to Avoid: Lifting/Bending, Strenuous Activity, Bathing, Driving Follow up Referrals: Orthopedics with José Frias MD ([facility]) PCP Follow-up - 1 Week SNF/[facility]/ with [facility] New Medications: Hydrocodone/Acetaminophen (Hydrocodone-Acetamin 7.5-325) 7.5 Mg-325 Mg Tablet 1 TAB PO Q4H PRN for PAIN LESS THAN 5 ON SCALE, #50 TAB Continued Medications: Meloxicam (Mobic) 7.5 Mg Tab 7.5 MG PO BID for Pain, TAB 0 Refills Tramadol (Tramadol) 50 Mg Tab 50 MG PO Q4H PRN for PAIN, TAB 0 Refills José Frias MD ([facility]) Feb 12, 2017 07:44
== END 2017-02-11 15:35 | disposition home health service (06) | DRG 470 ==
LOC: HSDI 05:26 → EDUNIT# 10:00 → N06B 11:51
PROVIDERS: ADMIT Orthopaedic Surgery; ATTEND Orthopaedic Surgery
PROC: 3E0T3BZ Introduction of Anesthetic Agent into Peripheral Nerves and Plexi, Percutaneous Approach (ICD-10-PCS; 2017-02-10)
PROC: 0SRD0JA Replacement of Left Knee Joint with Synthetic Substitute, Uncemented, Open Approach (ICD-10-PCS; principal; 2017-02-10 06:44)
DX: M17.12 Unilateral primary osteoarthritis, left knee (principal); Z68.43 Body mass index [BMI] 50.0-59.9, adult; G47.33 Obstructive sleep apnea (adult) (pediatric); M54.9 Dorsalgia, unspecified; G89.29 Other chronic pain; E66.01 Morbid (severe) obesity due to excess calories; Z87.891 Personal history of nicotine dependence
CPT/HCPCS: 73560; 80053; 83036; 83735; 84100; 84439; 84443; 85025; 86850; 86900; 86901; 86920; 86922; 94150; C1776; C9290; J0690; J1170; J1580; J1885; J2270; J3010; J7120

== ENCOUNTER 2017-05-12 10:00 | Inpatient (IN) | payer OTHER ==
[~2017-05-12] VITALS: Ht 175.3 cm; Wt 159.7 kg
[~2017-05-12 10:00] MED LIST changes: +TRAM50TA PO
[2017-06-16] MEDS ORDERED: CHLORHEXIDINE GLUCONATE 2 % 1 PACK (2 CLOTHS) TOPICAL PRN (07:00)
[2017-06-16] MEDS ORDERED: CHLORHEXIDINE GLUCONATE 4% SOLN 120 ML BTL TOPICAL SCH (07:00)
[2017-06-16] MEDS ORDERED: LACTATED RINGER'S 1000 ML IV PRN (07:00)
[2017-06-16] MEDS ORDERED: POVIDONE IODINE 5% (ANTISEPSIS KIT) 4 APPLICATIONS EACH NARE PRN (07:00)
[2017-06-16] MEDS ORDERED: ceFAZolin 3,000 MG/NS 100 ML (if >120 kg) IV SCH ×2 (07:00)
[2017-06-16] MEDS ORDERED: METOPROLOL TARTRATE 25 MG TAB PO PRN (07:00)
[2017-06-16] MEDS ORDERED: SODIUM CHLORID 0.9% 500 ML IV PRN (07:00)
[2017-06-16] MEDS ORDERED: FAMOTIDINE 20 MG/2 ML VIAL ONE ×2 (07:14→07:32)
[2017-06-16] MEDS ORDERED: ACETAMINOPHEN 1000 MG/100 ML 100 ML IV ONE (07:14)
[2017-06-16] MEDS ORDERED: GENTAMICIN SULFATE 80 MG/2 ML VIAL ONE (07:18)
[2017-06-16] MEDS ORDERED: ceFAZolin INJ 1,000 MG VIAL ONE (07:18)
[2017-06-16] MEDS ORDERED: ONDANSETRON HCL 4 MG/2 ML VIAL IVP PRN (07:30)
[2017-06-16] MEDS ORDERED: Post-op Orders (for Pharmacy) XX ONE (07:30)
[2017-06-16] MEDS ORDERED: ACETAMINOPHEN/HYDROcodone 325 MG/7.5 MG TAB PO PRN (07:30)
[2017-06-16] MEDS ORDERED: TRANEXAMIC ACID INJ 0 MG in SODIUM CHLORIDE 0.9% INJ 100 ML IV SCH (07:30)
[2017-06-16] MEDS ORDERED: MORPHINE SULFATE 4 MG/ML INJ IV PUSH PRN (07:30)
[2017-06-16] MEDS ORDERED: MAGNESIUM HYDROXIDE SUSP 30 ML CUP PO PRN (07:30)
[2017-06-16] MEDS ORDERED: MIDAZOLAM HCL 2 MG/2 ML VIAL ONE (07:31)
[2017-06-16] MEDS ORDERED: SODIUM CHLORIDE 0.9% IV SCH ×2 (08:00→11:00)
[2017-06-16] MEDS ORDERED: TRANEXAMIC ACID IV SCH ×2 (08:00→11:00)
[2017-06-16] MEDS ORDERED: EXPAREL PERI-ARTICULAR INJECTION (TOTAL VOL. 100 ML) P-ARTICULR SCH ×2 (08:00)
[2017-06-16] MEDS ORDERED: LACTATED RINGER'S 1000 ML INJ 1,000 ML IV SCH (08:30)
--- NOTE | 2017-06-16 10:50 | PD.OP ---
Operative Report Date of Surgery: Jun 16, 2017 Preoperative Diagnosis: (1) Primary osteoarthritis of right knee Postoperative Diagnosis: (1) Primary osteoarthritis of right knee Procedure: Right total knee arthroplasty using [place] Triathlon prosthesis (uncemented). Anesthesia: General endotracheal with supplemental adductor canal block regional and local with Exparel Surgeon: Aden Frias MD Capacity Manager(s): VANESSA Bhatia Operation and Findings: Indications and Findings: This 51-year-old man has had right knee pain for 2-1/ 2 years progressively increasing and causing him inability to easily do activities of daily living. This is interfered with his work. He is able to ambulate only 30 minutes at a time because of his pain. He has difficulty with stairs and standing from a seated position. He has 2 new crepitation in the knee. He has not responded to analgesics, anti-inflammatory agents, activity modification, exercise and intra-articular corticosteroid injections. Physical findings showed degenerative varum with medial laxity and tenderness in the medial compartment primarily but tricompartmental crepitation. X-rays show loss of articular cartilage to bone on bone in the medial compartment with medial, lateral and patellofemoral osteophytes with eburnation as well. Operative findings: There is severe tricompartmental osteoarthritis with loss of articular cartilage to eburnated bone in the medial medial femoral condyle tibial plateau with there being significant change in the lateral compartment and the patellofemoral compartment. There are large osteophytes as well. The prosthesis used was a [place] Triathlon prosthesis. The femur was a size 5, cruciate retaining, uncemented. The tibial baseplate was a size 5 Tritanium with a 9 mm cruciate retaining spacer. The patella was a size 38 mm asymmetric Tritanium backed. The patient was brought to the clean-air operating suite. A spinal anesthetic was administered as well as a regional anesthetic by abductor canal block. The position was supine with a small bolster under the hip on the operative side. A pneumatic tourniquet was applied to the upper thigh. The lower extremity was then prepped with alcohol, Hibiclens and ChloraPrep and draped in the usual manner with the knee draped free. An appropriate timeout procedure was carried out. An incision was made from about 3 fingerbreadths above the superior medial pole of patella down the tibial tubercle on the medial side. The incision was deepened through the subcutaneous tissue to the retinacular structures which were exposed medially and laterally. A medial retinacular incision was then made from the superior middle pole of patella down the tibial tubercle and up into the quadriceps tendon splitting it longitudinally and the medial one third. The patella was reflected. The infrapatellar fat pad was debulked. The anterior cruciate ligament was excised. Medial and lateral meniscectomies were initiated. Fenestrations were made in the distal femur and proximal tibia for intramedullary referencing guides. The distal femoral cutting guide and jig were then assembled for a 5, 8 mm cut. When this was fit position and placed cutting block was stabilized with pins. The jig was removed. The distal femoral cut was then completed with the oscillating saw. The sizing guide was then positioned in place along Whitesides line and the epicondylar axis and stabilized with pins. The femoral size was then determined as noted above. The 4-in-1 cutting block was then positioned in place. Anterior and posterior cuts were made followed by posterior and anterior chamfer cuts taking care to prevent injury to ligamentous structures. Osteophytes were then trimmed from the distal femur. A bone plug was then placed into the fenestration of the distal femur. The proximal tibia was then exposed. The medial and lateral meniscectomies were completed. The proximal tibial cutting guide was then positioned in place and stabilized with a pin for rotation. The depth of cut was then verified with a stylus off the lateral side. The cutting block was stabilized with pins. The jig was removed. The depth of cut was then verified and adjusted appropriately with the use of the spacer block. The proximal tibial cut was then made with the oscillating saw taking care to prevent injury to neurovascular and ligamentous structures. Proximal tibial bone was removed. Local anesthetic was administered with Exparel in the posterior capsule. The tibial baseplate trial was then positioned in place. After verifying the appropriate size, the base plate trial was positioned in place along with its spacer. The femoral component was then impacted into place. The alignment was checked. The tibial baseplate was then pinned in place on the tibia. Attention was directed to the patella. The patella drill guide was positioned in place for the appropriate sized patella. Patellar drilling was then carried out. The trial patella was positioned in place. The knee was taken through a range of motion which was easily 0 extension to 120 of flexion with pressure but 115 with gravity. The patella trial was removed. The femoral drill holes were made. The femoral trials were removed. The tibial spacer was removed. A bone plug was placed into the proximal tibia. The tibial punch was impacted through the proximal tibial punch guide. This was all removed followed by placement of the tibial drill guide. The tibial drill holes were then made. The guide was removed. The cut ends of bone were then cleaned with pulse lavage. The tibial baseplate was then impacted into place and seated appropriately. The spacer was inserted. The the femoral component was then impacted into place and seated appropriately. The patella component was then seated with the patellar vice and tightened appropriately. The knee was taken through a range of motion which was comparable to the previous range of motion with excellent stability in flexion and extension and appropriate patellofemoral tracking. The remainder of the Exparel was then injected throughout the knee as a local anesthetic. Drains were brought out the superior lateral aspect of the suprapatellar pouch. Wound closure then commenced using 0 Vicryl interrupted [id number] sutures for the capsular and fascial structures, 2-0 Vicryl interrupted simple sutures with buried knots for the subcutaneous tissues and 4- 0 Monocryl, tenuous subcuticular closure for the skin. The wound was then dressed with Dermabond Prineo followed by Optifoam silver impregnated dressing. Sterile soft roll with a cooling pad and Greyson bandage from the base of the toes to mid thigh were then applied. Patient was then transferred from the operating room to the recovery room in satisfactory condition having tolerated procedure well. Counts are correct. Specimens: None. Estimated blood loss: 350 mL José Frias MD ([facility]) Jun 16, 2017 10:50
--- NOTE | 2017-06-16 10:55 | HHI.FF ---
Face to Face Verification Diagnosis: (1) Status post total right knee replacement Physical Therapy Gait training Knee: Total knee, Protocol: Right, Gait training, Full weight bearing Right LE Weight Bearing: WB as tolerated Right LE Range of Motion: Active ROM (Active, active assisted and passive range of motion. Range of motion goal 0 extension to 120 of flexion.) Nursing Nursing: Dressing changes Dressing Changes: Daily dressing change, Coverderm/Primapore Additional Instructions Do not remove Dermabond Prineo. I have seen patient Reddy Tafoya on 06/16/17. My clinical findings support the need for the requested home health care services because: Ltd mobility - disease progression Limited ability to care for self High risk of falls I certify that my clinical findings support that this patient is homebound because: Post-op weakness Unsteady gait/balance Unsafe to leave home unassisted José Frias MD ([facility]) Jun 16, 2017 10:55
[2017-06-16] MEDS ORDERED: HYDR-3580 PO (10:57)
[2017-06-16] MEDS ORDERED: ECASA81 PO (10:57)
[2017-06-16] MEDS ORDERED: DO NOT ADM ANY ANTICOAGULANT DRUGS PRN (11:10)
[2017-06-16] MEDS ORDERED: *morphine SULFATE 4 MG/ML PERIprocedure ONLY ONE ×2 (11:22→11:33)
[2017-06-16] MEDS ORDERED: HYDROmorphone HCL PF 0.5 MG/0.5 ML SYRINGE ONE (11:42)
--- NOTE | 2017-06-16 11:45 | RADRPT ---
EXAM DATE/TIME: 06/16/2017 12:28 [facility] COMPARISON: No previous studies available for comparison. INDICATIONS : Post op right knee surgery MEDICAL HISTORY : None. SURGICAL HISTORY : left knee surgery ENCOUNTER: Initial ACUITY: 1 day PAIN SCORE: 10/10 LOCATION: Right knee FINDINGS: Two view examination of the right knee demonstrates total knee arthroplasty. All 3 components are rashad ropriately positioned without fracture. Suprapatellar drain is in place. CONCLUSION: Appropriate postoperative appearance of the right knee status post total arthroplasty. Dakota Doe MD on June 16, 2017 at 11:42 Board Certified Radiologist. This report was verified electronically.
[2017-06-16] MEDS ORDERED: ROCURONIUM INJ 50 MG/5 ML SYRINGE IV PUSH ONE (12:00)
[2017-06-16] MEDS ORDERED: hydrALAZINE HCL 20 MG/ML VIAL IV ONE (12:00)
[2017-06-16] MEDS ORDERED: LACTATED RINGER'S 1000 ML INJ 1,000 ML IV ONE (12:00)
[2017-06-16] MEDS ORDERED: LIDOCAINE HCL 1% PF 5 ML SYRINGE OTHER ONE (12:00)
[2017-06-16] MEDS ORDERED: DEXAMETHASONE SOD PHOS 4 MG/ML VIAL IV ONE (12:00)
[2017-06-16] MEDS ORDERED: PROPOFOL 200 MG/20 ML AMP IV ONE (12:00)
[2017-06-16] MEDS ORDERED: SUCCINYLCHOLINE CHLORIDE 100 MG/5 ML SYRINGE IV PUSH ONE (12:00)
[2017-06-16] MEDS ORDERED: ONDANSETRON HCL 4 MG/2 ML VIAL IV PUSH ONE (12:00)
[2017-06-16] MEDS ORDERED: KETOROLAC TROMETHAMINE 30 MG/ML (IVP) VIAL IV PUSH ONE (12:00)
[2017-06-16] MEDS ORDERED: NEOSTIGMINE 5 MG/5 ML SYRINGE IV PUSH ONE (12:00)
[2017-06-16] MEDS ORDERED: GLYCOPYRROLATE 1 MG/5 ML SYRINGE IV PUSH ONE (12:00)
[2017-06-16] MEDS ORDERED: EPINEPHrine HCL (1:1000) 1 MG/ML VIAL IV ONE (12:00)
[2017-06-16] MEDS ORDERED: *HYDROmorphone PF 0.5 MG/0.5 ML PERIprocedure ONLY ONE (12:14)
--- NOTE | 2017-06-16 13:25 | PD.CONS ---
HPI Service [facility] Consult Requested By Primary Care Physician Mike Montaño MD Diagnoses: History of Present Illness Mr. Tafoya is a 51-year-old male. He is admitted secondary to an elective right knee surgery. He has had a right knee replacement and is being seen postop today. When seen he complains of no nausea. His pain is controlled. He said he did well with his left knee surgery and has been happy with the results. Review of Systems Constitutional: DENIES: Fatigue, Fever, Chills Eyes: DENIES: Blurred vision, Diplopia, Eye inflammation Ears, nose, mouth, throat: DENIES: Hearing loss, Vertigo, Nasal discharge Respiratory: DENIES: Cough, Wheezing, Shortness of breath Cardiovascular: DENIES: Chest pain, Palpitations, Syncope Gastrointestinal: DENIES: Abdominal pain, Black stools, Bloody stools Musculoskeletal: COMPLAINS OF: Joint pain, Muscle aches, Stiffness, Joint Swelling Integumentary: DENIES: Abnormal pigmentation, Nail changes, Pruritus, Rash Hematologic/lymphatic: DENIES: Bruising, Lymphadenopathy Immunologic/allergic: DENIES: Eczema, Urticaria Neurologic: DENIES: Abnormal gait, Headache, Paresthesias Psychiatric: DENIES: Anxiety, Confusion, Hallucinations Past Family Social History Allergies: Coded Allergies: No Known Allergies (Unverified , 06/06/17) Past Medical History Objective sleep apnea Osteoarthritis Obesity Chronic back pain Past Surgical History 2 lumbar surgeries Reported Medications Reported Meds & Active Scripts Active Hydrocodone-Acetamin 7.5-325 (Hydrocodone/Acetaminophen) 7.5 Mg-325 Mg Tablet 1 Tab PO Q4H PRN Reported Tramadol (Tramadol HCl) 50 Mg Tab 50 Mg PO Q4H PRN Mobic (Meloxicam) 7.5 Mg Tab 7.5 Mg PO BID Active Ordered Medications Administered Medications Medications (Trade) Dose Ordered Sig/Mary Route PRN Reason Start Time Stop Time Status Last Admin Dose Admin Lactated Ringer's 1,000 ml @ 30 mls/hr Q24H PRN IV SEE LABEL COMMENTS 06/16/17 07:00 06/19/17 06:59 06/16/17 07:24 Povidone Iodine (Betadine 5% Antisepsis Kit) 1 applic FLUX MIXER PRN EACH NARE SEE LABEL COMMENTS 06/16/17 07:00 06/19/17 06:59 06/16/17 07:25 Chlorhexidine Gluconate (Chlorhexidine 2% Cloth) 3 pack FLUX MIXER PRN TOPICAL SEE LABEL COMMENTS 06/16/17 07:00 06/19/17 06:59 06/16/17 07:00 Chlorhexidine Gluconate (Hibiclens 4% Top Soln) 1 applic ONCE TOPICAL 06/16/17 07:00 06/19/17 06:59 06/16/17 07:25 Tranexamic Acid 1597 mg/Sodium Chloride 115.97 ml @ 200 mls/ hr ONCE IV 06/16/17 08:00 06/16/17 14:00 06/16/17 08:18 Bupivacaine Liposome 20 ml/ Sodium Chloride 100 ml @ 200 mls/hr ONCE P-ARTICULR 06/16/17 08:00 06/16/17 14:00 06/16/17 08:36 Lactated Ringer's 1,000 ml @ 80 mls/hr [id number] IV 06/16/17 08:30 06/16/17 11:50 Family History Lung cancer in mother Social History Past history of smoking, no longer smokes Occasional alcohol use No illicit drug abuse Physical Exam Vital Signs Vital Signs Date Time Temp Pulse Resp B/P (MAP) Pulse Ox O2 Delivery O2 Flow Rate FiO2 06/16/17 12:45 63 18 168/84 (112) 97 Nasal Cannula 3 06/16/17 12:30 63 17 146/71 (96) 99 Nasal Cannula 3 06/16/17 12:15 62 17 138/59 (85) 99 Nasal Cannula 3 06/16/17 12:00 62 19 169/73 (105) 100 Nasal Cannula 3 06/16/17 11:45 66 17 139/73 (95) 97 Nasal Cannula 3 06/16/17 11:30 71 18 177/90 (119) 97 Nasal Cannula 3 06/16/17 11:15 77 17 191/94 (126) 98 Simple Mask 6 06/16/17 11:12 97.6 79 17 200/103 (135) 95 Simple Mask 6 06/16/17 07:30 99 Nasal Cannula 2 06/16/17 07:09 97.6 67 20 147/68 (94) 97 Physical Exam GENERAL: NAD, A&Ox3 HEAD: Normocephalic. NECK: Supple, trachea midline. No lymphadenopathy. EYES: No scleral icterus. No injection or drainage. CARDIOVASCULAR: Regular rate and rhythm without murmurs, gallops, or rubs. RESPIRATORY: Breath sounds equal bilaterally. No accessory muscle use. GASTROINTESTINAL: Abdomen soft, non-tender, nondistended. MUSCULOSKELETAL: No cyanosis, or edema. Right knee is bandaged SKIN: Warm and dry. NEURO: No focal neurological deficitis. Assessment and Plan Problem List: (1) Status post total right knee replacement ICD Code: Z96.651 - Presence of right artificial knee joint (2) Primary osteoarthritis of right knee ICD Code: M17.11 - Unilateral primary osteoarthritis, right knee Assessment and Plan 51-year-old male admitted secondary to osteoarthritis of right knee for right total knee replacement Status post right total knee replacement Osteoarthritis Continue pain treatments as needed Bedrest for now Physical therapy plan Orthopedic surgeons following Follow-up H&H in the morning Objective sleep apnea Osteoarthritis Obesity Chronic back pain No change to baseline treatments DVT prophylaxis Per surgical discretion Scot Gaitan MD Jun 16, 2017 13:25
[2017-06-16] MEDS: ACETAMINOPHEN/HYDROcodone 325 MG/7.5 MG TAB PO PRN ×2 (14:15→18:32)
[2017-06-16] MEDS: ceFAZolin 2 GM PREMIX 50 ML IV SCH ×2 (14:30→21:28)
[2017-06-16] MEDS: KETOROLAC TROMETHAMINE 30 MG/ML (IVP) VIAL IVP SCH ×2 (15:43→21:29)
[2017-06-16 16:00] VITALS: BP 175/85; PULSE 60; RESP 18; TEMP 98.1; O2SAT 100
[2017-06-16] MEDS ORDERED: ZOLPIDEM TARTRATE 5 MG TAB PO PRN (21:00)
[2017-06-16 22:11] VITALS: BP 135/60; PULSE 70; RESP 16; TEMP 97.8; O2SAT 96
[2017-06-17] MEDS: ACETAMINOPHEN/HYDROcodone 325 MG/7.5 MG TAB PO PRN (01:15)
[2017-06-17 02:23] VITALS: BP 128/66; PULSE 65; RESP 16; TEMP 97.9; O2SAT 100
[2017-06-17] MEDS: ceFAZolin 2 GM PREMIX 50 ML IV SCH (03:27)
[2017-06-17] MEDS: KETOROLAC TROMETHAMINE 30 MG/ML (IVP) VIAL IVP SCH (04:28)
[2017-06-17 05:32] VITALS: BP 93/58; PULSE 73; RESP 16; TEMP 98; O2SAT 97
[2017-06-17 06:01] LABS: AUTOMATED NEUTROPHIL # 8.3 TH/MM3 (1.8-7.7); BASOPHIL # 0.1 TH/MM3 (0-0.2); BASOPHIL % 0.7 % (0.0-2.0); EOSINOPHIL # 0.1 TH/MM3 (0-0.4); EOSINOPHIL % 0.7 % (0.0-4.0); HEMATOCRIT 34.5 % (39.0-51.0); HEMOGLOBIN 11.9 GM/DL (13.0-17.0); LYMPH % 13.9 % (9.0-44.0); LYMPHOCYTE # 1.5 TH/MM3 (1.0-4.8); MEAN CELL VOLUME 87.1 FL (80.0-100.0); MEAN CORPUSCULAR HEMOGLOBIN 29.9 PG (27.0-34.0); MEAN CORPUSCULAR HGB CONC 34.4 % (32.0-36.0); MEAN PLATELET VOLUME 9.4 FL (7.0-11.0); MONOCYTE # 0.9 TH/MM3 (0-0.9); NEUT % 76.7 % (16.0-70.0); PLATELET COUNT 201 TH/MM3 (150-450); RED BLOOD COUNT 3.97 MIL/MM3 (4.50-5.90); WHITE BLOOD COUNT 10.9 TH/MM3 (4.0-11.0)
--- NOTE | 2017-06-17 06:02 | PD.ORT.PN ---
Subjective Post Op Day #: 1 Subjective Remarks He is doing well. He has minimal complaints related to the knee. He is anxious to get moving and get home. Range of Motion 0 extension to 86 of flexion. Distance Walked 50 feet with PT. Objective Vitals Vital Signs Date Time Temp Pulse Resp B/P (MAP) Pulse Ox O2 Delivery O2 Flow Rate FiO2 06/17/17 05:32 98.0 73 16 93/58 (70) 97 06/17/17 02:23 97.9 65 16 128/66 (86) 100 06/16/17 22:11 97.8 70 16 135/60 (85) 96 06/16/17 16:00 98.1 60 18 175/85 (115) 100 06/16/17 15:55 Nasal Cannula 3.00 06/16/17 15:40 98.8 78 17 94 Nasal Cannula 3 06/16/17 15:15 64 18 158/76 (103) 95 Nasal Cannula 3 06/16/17 14:30 61 18 141/78 (99) 94 Nasal Cannula 3 06/16/17 13:30 61 18 152/71 (98) 97 Nasal Cannula 3 06/16/17 12:45 63 18 168/84 (112) 97 Nasal Cannula 3 06/16/17 12:30 63 17 146/71 (96) 99 Nasal Cannula 3 06/16/17 12:15 62 17 138/59 (85) 99 Nasal Cannula 3 06/16/17 12:00 62 19 169/73 (105) 100 Nasal Cannula 3 06/16/17 11:45 66 17 139/73 (95) 97 Nasal Cannula 3 06/16/17 11:30 71 18 177/90 (119) 97 Nasal Cannula 3 06/16/17 11:15 77 17 191/94 (126) 98 Simple Mask 6 06/16/17 11:12 97.6 79 17 200/103 (135) 95 Simple Mask 6 06/16/17 07:30 99 Nasal Cannula 2 06/16/17 07:09 97.6 67 20 147/68 (94) 97 I/O 06/16/17 06/16/17 06/16/17 06/17/17 06/17/17 06/17/17 07:00 15:00 23:00 07:00 15:00 23:00 Intake Total 1500 ml 125 ml Output Total 460 ml Balance 1040 ml 125 ml Intake Oral 100 ml 125 ml IV Total 1400 ml Output Drainage Total 110 ml Estimated Blood Loss 350 ml Imaging Last 24 hours Impressions Knee X-Ray 06/16/17 0728 Signed Impressions: Service Date/Time: Friday, June 16, 2017 12:28 - CONCLUSION: Appropriate postoperative appearance of the right knee status post total arthroplasty. Dakota Doe MD Objective Remarks He is resting comfortably, supine in bed, in the CPM. The neurovascular status is intact. The dressing is dry and intact. Assessment & Plan Ortho Post Op Day #: 1 Problem List: (1) Primary osteoarthritis of right knee ICD Codes: M17.11 - Unilateral primary osteoarthritis, right knee Status: Resolved (2) Status post total right knee replacement ICD Codes: Z96.651 - Presence of right artificial knee joint Plan: Continue postop care and PT. Assessment and Plan Condition: Good. Orthopedically stable. DVT prophylaxis: TEDs, aspirin, sequentials. Discharge plans: Home with home health care. An appointment was scheduled through the office. Prescriptions: [place] 7.5/325 José Frias MD ([facility]) Jun 17, 2017 06:02
[2017-06-17 06:23] LABS: ALBUMIN 2.7 GM/DL (3.4-5.0); ALT (GPT) 28 U/L (12-78); AST (GOT) 21 U/L (15-37); BICARBONATE 22.1 MEQ/L (21.0-32.0); BLOOD UREA NITROGEN 15 MG/DL (7-18); CALCIUM 8.1 MG/DL (8.5-10.1); CHLORIDE 104 MEQ/L (98-107); CREATININE 1.02 MG/DL (0.60-1.30); GLOMERULAR FILTRATION RATE 77 ML/MIN (>89); GLUCOSE,RANDOM 115 MG/DL (74-106); SODIUM (NA) 136 MEQ/L (136-145)
[2017-06-17 06:25] LABS: ALKALINE PHOSPHATASE 69 U/L (45-117); TOTAL BILIRUBIN ADULT 0.5 MG/DL (0.2-1.0); TOTAL PROTEIN 6.3 GM/DL (6.4-8.2)
[2017-06-17] MEDS ORDERED: ASPIRIN 81 MG CHEW TAB ONE (07:51)
[2017-06-17] MEDS ORDERED: ASPIRIN EC 81 MG TABEC PO SCH (10:00)
--- NOTE | 2017-06-17 10:09 | HHI.DS ---
Discharge Summary Admission Date Jun 16, 2017 at 06:38 Discharge Date: Jun 17, 2017 Admitting Diagnosis Primary osteoarthritis, right knee. Diagnosis: (1) Primary osteoarthritis of right knee Diagnosis: Principal ICD Codes: M17.11 - Unilateral primary osteoarthritis, right knee Status: Resolved (2) Status post total right knee replacement Diagnosis: Principal ICD Codes: Z96.651 - Presence of right artificial knee joint Procedures Right total knee arthroplasty using [place] Triathlon prosthesis (uncemented) on 06/16/2017 Brief History This is a 51 year old male patient has had long-standing arthritis in his right knee that has been nonresponsive to conservative measures. He continues to have pain in the knee in the medial compartment especially. His ambulation tolerance has been significantly limited. Physical findings showed genuine varum with crepitation on range of motion and medial laxity. X-rays show loss of articular cartilage to bone on bone in the medial compartment with tricompartmental arthritis being evident. CBC/BMP: 06/17/17 0540 06/17/17 0540 Significant Findings Laboratory Tests Test 06/17/17 05:40 Red Blood Count 3.97 MIL/MM3 (4.50-5.90) Hemoglobin 11.9 GM/DL (13.0-17.0) Hematocrit 34.5 % (39.0-51.0) Neutrophils (%) (Auto) 76.7 % (16.0-70.0) Neutrophils # (Auto) 8.3 TH/MM3 (1.8-7.7) Random Glucose 115 MG/DL (74-106) Total Protein 6.3 GM/DL (6.4-8.2) Albumin 2.7 GM/DL (3.4-5.0) Calcium Level 8.1 MG/DL (8.5-10.1) Estimat Glomerular Filtration Rate 77 ML/MIN (>89) Imaging Last 72 hours Impressions Knee X-Ray 06/16/17 0728 Signed Impressions: Service Date/Time: Friday, June 16, 2017 12:28 - CONCLUSION: Appropriate postoperative appearance of the right knee status post total arthroplasty. Dakota Doe MD PE at Discharge He is resting comfortably, supine in bed, in the CPM. The neurovascular status is intact. The dressing is dry and intact. Hospital Course The patient was admitted as noted above. The above noted operative procedure was carried out that day. Preoperatively prophylactic antibiotics were administered Ancef according to protocol. These were continued postoperatively. The patient also received tranexamic acid to help with hemostasis according to protocol. In the postanesthesia care unit a continuous passive motion device was initiated. Also initiated were mechanical methods of DVT prophylaxis in the form of KAIA stockings and sequentials. Physical therapy was initiated on the day of surgery. He was able to walk 50 feet with physical therapy on the day of surgery. On postoperative day #1 physical therapy continued. The use of the continuous passive motion device continued. DVT prophylaxis with aspirin 81 mg twice daily was initiated at this time. The patient continued physical therapy throughout the hospitalization. The distance walked and range of motion improved throughout the hospitalization. The patient was discharged on postoperative day 1 with the disposition being to home with home health care. An appointment for follow-up was made prior to admission. Pt Condition on Discharge: Good Discharge Disposition: Disch w/ Home Health Serv Discharge Instructions Diet Instructions: As Tolerated, No Restrictions Activities You Can Perform: Full Weight Bearing, Shower Only-No Bath Activities to Avoid: Lifting/Bending, Strenuous Activity, Bathing, Driving Follow up Referrals: Orthopedics with José Frias MD ([facility]) New Medications: Aspirin DR (Aspirin DR) 81 Mg Tabdr 81 MG PO BID for Prevent Blood Clot for 30 Days, #60 TAB Hydrocodone/Acetaminophen (Hydrocodone-Acetamin 7.5-325) 7.5 Mg-325 Mg Tablet 1 TAB PO Q4H PRN for PAIN SCALE 1 TO 10, #30 TAB Continued Medications: Meloxicam (Mobic) 7.5 Mg Tab 7.5 MG PO BID for Pain, TAB 0 Refills Tramadol (Tramadol) 50 Mg Tab 50 MG PO Q4H PRN for PAIN, TAB 0 Refills José Frias MD ([facility]) Jun 17, 2017 10:09
[2017-06-17] MEDS ORDERED: DOCUSATE SODIUM 100 MG CAP PO SCH (21:00)
== END 2017-06-17 08:37 | disposition home health service (06) | DRG 470 ==
LOC: HSDI 06-16 06:38 → N06A 06-16 15:53
PROVIDERS: ADMIT Orthopaedic Surgery; ATTEND Orthopaedic Surgery
PROC: 3E0T3BZ Introduction of Anesthetic Agent into Peripheral Nerves and Plexi, Percutaneous Approach (ICD-10-PCS; 2017-06-16)
PROC: 0SRC0JA Replacement of Right Knee Joint with Synthetic Substitute, Uncemented, Open Approach (ICD-10-PCS; principal; 2017-06-16 07:47)
DX: M17.11 Unilateral primary osteoarthritis, right knee (principal); Z68.43 Body mass index [BMI] 50.0-59.9, adult; E66.9 Obesity, unspecified; G47.30 Sleep apnea, unspecified; G89.29 Other chronic pain; M54.9 Dorsalgia, unspecified; Z87.891 Personal history of nicotine dependence
CPT/HCPCS: 73560; 80053; 85025; 86850; 86900; 86901; C1776; J0131; J0171; J0330; J0360; J0690; J1100; J1170; J1580; J1885; J2250; J2270; J2405; J2710; J3010; J7120

== ENCOUNTER → 2017-06-06 | Outpatient (CLI) | payer OTHER ==
[~2017-06-06] MED LIST changes: +HYDR-3580 PO
[2017-06-06 09:21] LABS: HEMATOCRIT 44.2 % (39.0-51.0); MEAN CELL VOLUME 86.9 FL (80.0-100.0); MEAN CORPUSCULAR HEMOGLOBIN 29.5 PG (27.0-34.0); MEAN CORPUSCULAR HGB CONC 33.9 % (32.0-36.0); MEAN PLATELET VOLUME 8.9 FL (7.0-11.0); PLATELET COUNT 236 TH/MM3 (150-450); RED BLOOD COUNT 5.09 MIL/MM3 (4.50-5.90); RED CELL DISTRIBUTION WIDTH 14.1 % (11.6-17.2); WHITE BLOOD COUNT 7.4 TH/MM3 (4.0-11.0)
[2017-06-06 09:28] LABS: BILIRUBIN, URINE NEG (NEG); BLOOD, URINE NEG (NEG); GLUCOSE,URINE NEG (NEG); KETONE, URINE NEG (NEG); NITRITE,URINE NEG (NEG); PH, URINE 6.5 (5.0-8.5); SQUAMOUS EPITHELIAL CELL URINE <1 /hpf (0-5); URINE COLOR YELLOW (YELLW/STRAW); URINE LEUKOCYTE ESTERASE NEG (NEG)
[2017-06-06 09:45] LABS: BICARBONATE 28.5 MEQ/L (21.0-32.0); CALCIUM 9.2 MG/DL (8.5-10.1); CREATININE 0.95 MG/DL (0.60-1.30)
== END ==
LOC: CPRE 08:40
PROVIDERS: ATTEND Orthopaedic Surgery
DX: Z01.812 Encounter for preprocedural laboratory examination (principal); M17.11 Unilateral primary osteoarthritis, right knee; M79.609 Pain in unspecified limb; M21.161 Varus deformity, not elsewhere classified, right knee
CPT/HCPCS: 36415; 80048; 81001; 85027